=== PATIENT | female | born 1965 | race African-American/Black ===

== ENCOUNTER 2023-04-02 20:17 | Emergency (ER) | payer MEDICAID ==
[~2023-04-02] VITALS: Ht 157.5 cm; Wt 79.0 kg
[2023-04-02 21:16] VITALS: BP 187/86; O2SAT 99
[2023-04-02 22:09] VITALS: PULSE 77; RESP 16; TEMP 98.4
== END 2023-04-02 22:13 | disposition home or self-care (01) ==
LOC: ER 20:17
DX: B34.9 Viral infection, unspecified (principal); E11.9 Type 2 diabetes mellitus without complications
CPT/HCPCS: 99281

== ENCOUNTER 2023-05-04 22:24 | Emergency (ER) | payer SELFPAY ==
[~2023-05-04] VITALS: Ht 157.5 cm; Wt 87.6 kg
[2023-05-04 22:31] VITALS: BP 168/67; RESP 16; TEMP 98.6; O2SAT 100
[2023-05-04 22:32] VITALS: PULSE 61
== END 2023-05-04 22:54 | disposition home or self-care (01) ==
LOC: ER 22:24
DX: H92.02 Otalgia, left ear (principal); R09.81 Nasal congestion; E11.9 Type 2 diabetes mellitus without complications
CPT/HCPCS: 99281

== ENCOUNTER 2023-09-22 20:57 | Emergency (ER) | payer MEDICAID ==
[~2023-09-22] VITALS: Ht 157.5 cm; Wt 78.4 kg
[2023-09-22 21:09] VITALS: O2SAT 100
[2023-09-22 21:18] VITALS: BP 161/64; PULSE 66; RESP 16; TEMP 98.4
[2023-09-22] MEDS ORDERED: ENAL-77 MT (22:41)
[2023-09-22] MEDS: ACETAMINOPHEN 325MG TABLET PO ONE (22:41)
== END 2023-09-22 22:53 | disposition home or self-care (01) ==
LOC: ER 20:57
DX: I10 Essential (primary) hypertension (principal); E11.9 Type 2 diabetes mellitus without complications
CPT/HCPCS: 99283